=== PATIENT | male | born 1980 | race Caucasian/White ===

== ENCOUNTER → 2024-07-25 | Outpatient (CLI) | payer BC ==
--- NOTE | 2024-07-25 21:48 | XR ---
EXAMINATION TYPE: XR KUB DATE OF EXAM: 07/25/2024 10:05 AM COMPARISON: None. CLINICAL INDICATION: Male, 44 years old with history of N20.0 CALCULUS OF KIDNEY, TECHNIQUE: XR KUB view(s) obtained. FINDINGS: There is a normal colonic bowel gas pattern. Psoas margins are normal. No organomegaly is present. Small mid to inferior pole left renal calcifications are present measuring 0.5 and 0.4 cm in size IMPRESSION: 1. Left renal calcifications [facility], , 07/25/2024 9:46 PM
== END | disposition home or self-care (01) ==
LOC: RADXRMAIN 09:53
PROVIDERS: ATTEND Urology
DX: N20.0 Calculus of kidney (principal); N28.9 Disorder of kidney and ureter, unspecified
CPT/HCPCS: 74018